=== PATIENT | male | born 1990 | race Caucasian/White ===

== ENCOUNTER 2016-12-08 11:20 | Emergency (ER) | payer MEDICAID ==
[2016-12-08 12:04] LABS: BASOPHILS 0.6 % (0.0-2.0); EOSINOPHILS 3.9 % (0.0-6.0); EOSINOPHILS# 0.2 X 10^3uL (0.0-0.4); HEMOGLOBIN 14.7 g/dL (14.0-18.0); LYMPHOCYTES 43.4 % (20.0-40.0); LYMPHOCYTES# 2.3 X 10^3uL (0.8-3.8); MEAN CELL VOLUME 96.4 fL (80.0-100.0); MEAN CORPUS. HGB CONCENTRATION 34.9 g/dL (32.0-36.0); MEAN CORPUSCULAR HEMOGLOBIN 33.7 pg (29.0-35.0); MEAN PLATELET VOLUME 8.9 fL (7.4-10.4); MONOCYTES 6.7 % (2.0-10.0); MONOCYTES# 0.4 X 10^3uL (0.2-1.0); NEUTROPHILS 45.4 % (54.0-75.0); NEUTROPHILS# 2.3 X 10^3uL (2.6-6.7); PLATELET COUNT 223 X 10^3uL (130-440); RED BLOOD COUNT 4.36 X 10^6uL (4.20-6.10); WHITE BLOOD COUNT 5.3 X 10^3uL (3.9-10.7)
[2016-12-08 12:12] LABS: BLOOD UREA NITROGEN 15 mg/dL (9-20); CHLORIDE 99 mmol/L (98-107); CREATININE 0.6 mg/dL (0.7-1.3); EST GLOMERULAR FILTRATION RATE > 60 mL/min; POTASSIUM 3.7 mmol/L (3.5-5.1); SODIUM 135 mmol/L (137-145)
[2016-12-08 12:28] LABS: GLUCOSE 211 mg/dL (70-100)
[2016-12-08 12:33] LABS: BETA HYDROXYBUTYRATE 0.19 mmol/L (<0.40)
--- NOTE | 2016-12-08 14:36 | ER PHYSICIAN DOCUMENTATION ---
Physician Documentation [facility] Name:Avi Rodriges Age:26 yrs Sex:Male :1990 Arrival Date:12/08/2016 Time:11:20 Bed3 Private MD:Dieudonne Forrest ED, Scott Disposition: 12/08/16 14:13 Discharged to Home/Self Care. Impression: Diabetes Mellitus, Type 1 with Hyperglycemia. - Condition is Good. - Discharge Instructions: DIABETIC HYPERGLYCEMIA. - Medical Reconciliation form form. - Follow up: [facility]; When: 1 - 2 days; Reason: Worsening of condition, Recheck today's complaints, Continuance of care. - Problem is an acute exacerbation. - Symptoms have improved. HPI: 12/08 13:18 This 26 yrs old Male presents to ER with complaints of High Blood Sugar. sc 13:59 The patient or guardian reports generalized fatigue, hyperglycemia, polydipsia, sc polyuria, that was potentially precipitated by no particular event. Onset: The symptom(s)/episode began/occurred 6 week(s) ago. Associated signs and symptoms: Pertinent positives: dry skin, ketones in urine, polydipsia. Current symptoms: In the emergency department the patient's symptoms are unchanged from the initial presentation. The patient has been recently seen at an urgent care, last week, last month, for similar complaints, newly diagnosed iddm with constant fingersticks measuring ' hi'. Historical: - Allergies: No known drug Allergies; - Home Meds: 1. insulin - PMHx: DIABETES - IDDM; - PSHx: None; - Tetanus: < 10 years. - Ebola Screening: : Patient denies exposure to infectious person. Patient denies travel to an Ebola-affected area in the 21 days before illness onset. . - Social history: Smoking status: Patient uses tobacco products, current every day smoker. Patient uses alcohol occasionally. Patient/guardian denies using marijuana. ROS: 14:00 Constitutional: Negative for fever, chills, and weight loss. sc 14:00 Eyes: Negative for injury, pain, redness, and discharge. sc ENT: Negative for injury, pain, and discharge. Neck: Negative for injury, pain, and swelling. Cardiovascular: Negative for chest pain, palpitations, and edema. Respiratory: Negative for shortness of breath, cough, wheezing, and pleuritic chest pain. Back: Negative for injury and pain. MS/Extremity: Negative for injury and deformity. 14:00 Skin: Negative for injury, rash, and discoloration. 14:00 Constitutional: Positive for fatigue, poor PO intake. 14:00 Abdomen/GI: Positive for nausea. 14:00 Neuro: Positive for weakness. Exam: Head/Face: Normocephalic, atraumatic. Eyes: Pupils equal round and reactive to light, extra-ocular motions intact. Lids and lashes normal. Conjunctiva and sclera are non-icteric and not injected. Cornea within normal limits. Periorbital areas with no swelling, redness, or edema. Neck: Trachea midline, no thyromegaly or masses palpated, and no cervical lymphadenopathy. Supple, full range of motion without nuchal rigidity, or vertebral point tenderness. No meningismus. Chest/axilla: Normal chest wall appearance and motion. Nontender with no deformity. No lesions are appreciated. Cardiovascular: Regular rate and rhythm with a normal S1 and S2. No gallops, murmurs, or rubs. Normal PMI, no JVD. No pulse deficits. Respiratory: Lungs have equal breath sounds bilaterally, clear to auscultation and percussion. No rales, rhonchi or wheezes noted. No increased work of breathing, no retractions or nasal flaring. Abdomen/GI: Soft, non-tender, with normal bowel sounds. No distension or tympany. No guarding or rebound. No evidence of tenderness throughout. Back: No spinal tenderness. No costovertebral tenderness. Full range of motion. MS/ Extremity: Pulses equal, no cyanosis. Neurovascular intact. Full, normal range of motion, negative Homans's, calves equal bilaterally. 14:01 Neuro: Awake and alert, GCS 15, oriented to person, place, time, and situation. ri Cranial nerves II-XII grossly intact. Motor strength 5/5 in all extremities. Sensory grossly intact. Cerebellar exam normal. Normal gait. 14:01 Constitutional: The patient appears alert, awake, lethargic. 14:01 ENT: Mouth: Oral mucosa: dry. 14:01 Skin: Turgor: is poor. 14:15 Abdomen/GI: Bowel sounds: normal, Palpation: abdomen is soft and non-tender. ri 14:15 Respiratory: Respirations: normal, Breath sounds: are normal, clear throughout. ri Vital Signs: 11:37 BP 122 / 78; Pulse 97; Pulse Ox 97% on R/A; st 12:28 BP 111 / 63; Pulse 87; Pulse Ox 97% ; st 12:30 BP 109 / 71; Pulse 85; Pulse Ox 95% ; st 13:00 BP 111 / 66; Pulse 77; Pulse Ox 96% ; st 13:30 BP 111 / 63; Pulse 78; Pulse Ox 100% ; st MDM: 11:25 Patient medically screened. ri 14:06 Differential diagnosis: DKA, hyperglycemia. Data reviewed: vital signs, nurses notes, ri old medical records, lab test result(s), and as a result, I will continue to observe the patient, administer IV fluids. Counseling: I had a detailed discussion with the patient and/or guardian regarding: the historical points, exam findings, and any diagnostic results supporting the discharge/admit diagnosis, the need for outpatient follow up, to return to the emergency department if symptoms worsen or persist or if there are any questions or concerns that arise at home. Medication response: The patient's symptoms have improved. 12/08 12:10 Order name: CBC AUTO DIF, MDIF/RMOR IF IND; Complete Time: 12:34 EDMI 12/08 12:34 Interpretation: Normal: Normal. ri 12/08 12:28 Order name: BASIC METABOLIC PANEL; Complete Time: 12:34 EDMS 12/08 12:34 Interpretation: Normal Except: SODIUM 135; GLUCOSE 211. ri 12/08 12:34 Order name: BETA HYDROXYBUTYRATE; Complete Time: 12:34 EDMI 12/08 12:34 Interpretation: Normal. ri 12/08 11:41 Order name: Urine Dip; Complete Time: 14:27 ri Dispensed Medications: 11:48 Drug: NS 0.9% 1000 ml; Route: IV; Rate: bolus; Site: left antecubital; st 12:21 Follow up: IV Status: Completed infusion; IV Intake: 1000ml st 12:30 Drug: NS 0.9% 1000 ml; Route: IV; Rate: 100 ml/hr; Site: left antecubital; st 14:26 Follow up: IV Status: Infusion discontinued; IV Intake: 200ml Point of Care Testing: Blood Glucose: 12:58 Blood Glucose: 200 mg/dL; Urine Dip: 13:50 pH: 6.0; ; Specific [place]: 1.025; Ketones: Negative; Glucose: Positive; Protein: sd3 Trace; Leukocytes: Negative; Nitrite: Negative ; Blood: Negative; Bilirubin: Negative ; Urobilinogen: Normal Ranges: Critical Glucose Levels:Adult <50 mg/dl or >400 mg/dl <40 mg/dl or >180 mg/dl Signatures: Blessing Huitron RN RN st Chew, Scott, MD MD ri
--- NOTE | 2016-12-08 14:36 | ER NURSING DOCUMENTATION ---
Nurse's Notes [facility] Name:Avi Rodriges Age:26 yrs Sex:Male :1990 Arrival Date:12/08/2016 Time:11:20 Bed3 Private MD:Dieudonne Forrest Diagnosis:Diabetes Mellitus, Type 1 with Hyperglycemia Presentation: 12/08 11:23 Presenting complaint: Patient states: pt states that he was dx with diabetes about a st month ago but his Glucometer keeps saying high and he dose not feel well. Transition of care: Home. 11:23 Method Of Arrival: Private Vehicle st 11:39 Acuity: MODESTO 2 st Triage Assessment: 11:23 General: Appears uncomfortable, Behavior is cooperative. General: pt also reports some" st neuropathy in his hands and feet when they get cold". Pain: Denies pain. EENT: Oral mucosa is dry. EENT: Reports blurred vision. Neuro: No deficits noted. Cardiovascular: tachy. Cardiovascular: Heart tones present Reports lightheadedness. Respiratory: No deficits noted. GI: No deficits noted. Historical: - Allergies: No known drug Allergies; - Home Meds: 1. insulin - PMHx: DIABETES - IDDM; - PSHx: None; - Tetanus: < 10 years. - Ebola Screening: : Patient denies exposure to infectious person. Patient denies travel to an Ebola-affected area in the 21 days before illness onset. . - Social history: Smoking status: Patient uses tobacco products, current every day smoker. Patient uses alcohol occasionally. Patient/guardian denies using marijuana. Screenin:23 Infectious Disease Risk None. Abuse screen: Denies threats or abuse. Denies injuries st from another. pt feels safe at home. Nutritional screening: No deficits noted. Assessment: 12:00 General: pt resting quietly. st Vital Signs: 11:37 BP 122 / 78; Pulse 97; Pulse Ox 97% on R/A; st 12:28 BP 111 / 63; Pulse 87; Pulse Ox 97% ; st 12:30 BP 109 / 71; Pulse 85; Pulse Ox 95% ; st 13:00 BP 111 / 66; Pulse 77; Pulse Ox 96% ; st 13:30 BP 111 / 63; Pulse 78; Pulse Ox 100% ; st ED Course: 11:23 Patient arrived in ED. ama 11:23 Valuables Remains with patient Patient has correct armband on for positive st identification. Placed in gown. Bed in low position. Call light in reach. Pulse Ox - RN Monitoring Only NIBP On - RN Monitoring Only. Warm blanket given. 11:24 Dieudonne Forrest MD is Private Physician. ama 11:24 Magdy Sadler MD is Attending Physician. tx 11:39 Blessing Huitron RN is Primary Nurse. st 11:[address] 11:48 Inserted peripheral IV: 20 gauge in left antecubital area and blood collected. st 13:50 Assisted to bathroom. pt able to walk without any troubles. st 13:51 Urine collected. Clean catch specimen. st 14:07 [place] is Referral Physician. sc Administered Medications: 11:48 Drug: NS 0.9% 1000 ml; Route: IV; Rate: bolus; Site: left antecubital; st 12:21 Follow up: IV Status: Completed infusion; IV Intake: 1000ml st 12:30 Drug: NS 0.9% 1000 ml; Route: IV; Rate: 100 ml/hr; Site: left antecubital; st 14:26 Follow up: IV Status: Infusion discontinued; IV Intake: 200ml Point of Care Testing: Blood Glucose: 12:58 Blood Glucose: 200 mg/dL; st Urine Dip: 13:50 pH: 6.0; ; Specific [place]: 1.025; Ketones: Negative; Glucose: Positive; Protein: sd3 Trace; Leukocytes: Negative; Nitrite: Negative ; Blood: Negative; Bilirubin: Negative ; Urobilinogen: Normal Ranges: Intake: 12:21 IV: 1000ml; Total: 1000ml. st 14:26 IV: 200ml; Total: 1200ml. st Outcome: 14:13 Discharge ordered by . tx 14:31 Discharged to home ambulatory. st 14:31 Condition: improved 14:31 Discharge instructions given to patient, Instructed on discharge instructions, follow up and referral plans. medication usage. 14:31 IV D/Frederic 14:35 Patient left the ED. st Signatures: Blessing Huitron RN RN st Magdy Sadler MD MD [facility], [facility] sd3 Eulogio Latif, Reg Reg ama
== END 2016-12-08 14:36 | disposition home or self-care (01) ==
LOC: ER 11:20
DX: E10.65 Type 1 diabetes mellitus with hyperglycemia (principal); E86.0 Dehydration; R53.83 Other fatigue; R53.1 Weakness; R11.0 Nausea
CPT/HCPCS: 80048; 82010; 85025; 96360; 96361; 99284

== ENCOUNTER 2017-01-23 03:16 | Emergency (ER) | payer SELFPAY ==
[2017-01-23] MEDS ORDERED: INSULIN REGULAR HUMAN 100 UNITS/ML ML ONE ×2 (03:41→04:49)
[2017-01-23 03:55] LABS: BASOPHILS 0.6 % (0.0-2.0); EOSINOPHILS 3.5 % (0.0-6.0); EOSINOPHILS# 0.2 X 10^3uL (0.0-0.4); HEMOGLOBIN 16.8 g/dL (14.0-18.0); LYMPHOCYTES 39.4 % (20.0-40.0); LYMPHOCYTES# 2.8 X 10^3uL (0.8-3.8); MEAN CELL VOLUME 96.6 fL (80.0-100.0); MEAN CORPUS. HGB CONCENTRATION 35.1 g/dL (32.0-36.0); MEAN CORPUSCULAR HEMOGLOBIN 33.9 pg (29.0-35.0); MEAN PLATELET VOLUME 8.9 fL (7.4-10.4); MONOCYTES 7.4 % (2.0-10.0); MONOCYTES# 0.5 X 10^3uL (0.2-1.0); NEUTROPHILS 49.1 % (54.0-75.0); NEUTROPHILS# 3.5 X 10^3uL (2.6-6.7); PLATELET COUNT 208 X 10^3uL (130-440); RED BLOOD COUNT 4.97 X 10^6uL (4.20-6.10); RED CELL DISTRIBUTION WIDTH 11.4 % (11.5-14.5)
[2017-01-23 03:57] LABS: BLOOD UREA NITROGEN 17 mg/dL (9-20); CALCIUM 9.5 mg/dL (8.4-10.2); CHLORIDE 101 mmol/L (98-107); CREATININE 0.6 mg/dL (0.7-1.3); EST GLOMERULAR FILTRATION RATE > 60 mL/min; POTASSIUM 4.3 mmol/L (3.5-5.1); SODIUM 139 mmol/L (137-145)
[2017-01-23 04:01] LABS: GLUCOSE 457 mg/dL (70-100)
[2017-01-23 04:02] LABS: ETHYL ALCOHOL 146 mg/dL (<10)
[2017-01-23 04:03] LABS: BETA HYDROXYBUTYRATE 0.46 mmol/L (<0.40)
[2017-01-23] MEDS ORDERED: THIAMINE HCL 200 MG/2 ML VIAL ONE (04:04)
[2017-01-23] MEDS ORDERED: MAGNESIUM SULFATE 1 GM/2 ML VIAL ONE (04:04)
[2017-01-23] MEDS ORDERED: MULTIVITAMINS 10 ML VIAL IV ONE (04:05)
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
--- NOTE | 2017-01-23 05:18 | ER PHYSICIAN DOCUMENTATION ---
[facility]ician Documentation [facility] Name:Avi Rodriges Age:26 yrs Sex:Male :1990 Arrival Date:01/23/2017 Time:03:16 Bed4 Private MD:Dieudonne Forrest ED, Scott Disposition: 01/23/17 04:41 Discharged to Home/Self Care. Impression: Diabetes Mellitus, Type 1 with Hyperglycemia, Alcohol Abuse. - Condition is Good. - Discharge Instructions: DIABETIC HYPERGLYCEMIA, Abuse, Alcohol - ALCOHOL INTOXICATION. - Medical Reconciliation form form. - Follow up: Dieudonne Forrest MD; When: 1 week; Reason: Recheck today's complaints. - Problem is new. - Symptoms have improved. HPI: 01/23 03:58 This 26 yrs old Male presents to ER via Police with complaints of High Blood sc Sugar, ETOH Abuse. 03:58 The patient or guardian reports hyperglycemia, that was potentially precipitated by no sc particular event. Onset: The symptom(s)/episode began/occurred at an unknown time. Associated signs and symptoms: Pertinent positives: None. The patient has experienced similar episodes in the past, chronically. Takes lantus 20 per day but doesn't check blood sugars or have local Dr., drinks EtOH most days but no wd symptoms in past. Historical: - Allergies: No known drug Allergies; - Home Meds: 1. insulin - PMHx: DIABETES - IDDM; Diabetes Mellitus, Type 1 with Hyperglycemia (December 08, 2016); - PSHx: NONE; - Tetanus: < 10 years. - Ebola Screening: : Patient negative for fever greater than or equal to 101.5 degrees Fahrenheit, and additional compatible Ebola Virus Disease symptoms. - Immunization history: Flu Vaccine None. - Social history: Smoking status: Patient uses tobacco products, current every day smoker. Patient uses alcohol claims drinking about a 6 pack/day. patient/guardian reports chronic longstanding heavy alcohol consumption. patient/guardian reports recent binge of alcohol consumption. ROS: 03:59 Constitutional: Negative for fever, chills, and weight loss. sc Eyes: Negative for injury, pain, redness, and discharge. ENT: Negative for injury, pain, and discharge. Neck: Negative for injury, pain, and swelling. Cardiovascular: Negative for chest pain, palpitations, and edema. Respiratory: Negative for shortness of breath, cough, wheezing, and pleuritic chest pain. Abdomen/GI: Negative for abdominal pain, nausea, vomiting, diarrhea, and constipation. Back: Negative for injury and pain. MS/Extremity: Negative for injury and deformity. Skin: Negative for injury, rash, and discoloration. 03:59 Neuro: Negative for headache, weakness, numbness, tingling, and seizure. sc Exam: Constitutional: This is a well developed, well nourished patient who is awake, alert, and in no acute distress. Head/Face: Normocephalic, atraumatic. Eyes: Pupils equal round and reactive to light, extra-ocular motions intact. Lids and lashes normal. Conjunctiva and sclera are non-icteric and not injected. Cornea within normal limits. Periorbital areas with no swelling, redness, or edema. ENT: Nares patent. No nasal discharge, no septal abnormalities noted. Tympanic membranes are normal and external auditory canals are clear. Oropharynx with no redness, swelling, or masses, exudates, or evidence of obstruction, uvula midline. Mucous membranes moist. Cardiovascular: Regular rate and rhythm with a normal S1 and S2. No gallops, murmurs, or rubs. Normal PMI, no JVD. No pulse deficits. Respiratory: Lungs have equal breath sounds bilaterally, clear to auscultation and percussion. No rales, rhonchi or wheezes noted. No increased work of breathing, no retractions or nasal flaring. Abdomen/GI: Soft, non-tender, with normal bowel sounds. No distension or tympany. No guarding or rebound. No evidence of tenderness throughout. Back: No spinal tenderness. No costovertebral tenderness. Full range of motion. Skin: Warm, dry with normal turgor. Normal color with no rashes, no lesions, and no evidence of cellulitis. MS/ Extremity: Pulses equal, no cyanosis. Neurovascular intact. Full, normal range of motion, negative Homans's, calves equal bilaterally. 04:39 Neuro: Awake and alert, GCS 15, oriented to person, place, time, and situation. sc Cranial nerves II-XII grossly intact. Motor strength 5/5 in all extremities. Sensory grossly intact. Cerebellar exam normal. Normal gait. 04:43 Abdomen/GI: Bowel sounds: normal, Palpation: abdomen is soft and non-tender. ky 04:43 Respiratory: Respirations: normal, Breath sounds: are normal, clear throughout. ky 04:43 Neck: Exam negative for acute changes. ky Vital Signs: 03:24 BP 133 / 92; Pulse 84; Resp 15; Temp 98.3(TE); Pulse Ox 92% on R/A; Weight 70.31 kg; rh Height 6 ft. 0 in. (182.88 cm); Pain 4/10; 05:10 BP 122 / 76; Pulse 86; Resp 15; Pulse Ox 97% on R/A; Pain 0/10; rh 03:24 Body Mass Index 21.02 (70.31 kg, 182.88 cm) rh MDM: 03:47 Patient medically screened. ky 04:40 Differential diagnosis: hyperglycemia. Data reviewed: vital signs, nurses notes, lab sc test result(s), and as a result, I will continue to observe the patient, administer IV fluids. Counseling: I had a detailed discussion with the patient and/or guardian regarding: the historical points, exam findings, and any diagnostic results supporting the discharge/admit diagnosis, lab results, the need for outpatient follow up, to return to the emergency department if symptoms worsen or persist or if there are any questions or concerns that arise at home. 01/23 04:04 Order name: BASIC METABOLIC PANEL; Complete Time: 04:43 EDMS 01/23 04:42 Interpretation: Abnormal: CARBON DIOXIDE 21; GLUCOSE 457. ky 01/23 04:04 Order name: ETHYL ALCOHOL; Complete Time: 04:43 EDMS 01/23 04:42 Interpretation: Abnormal: ETHYL ALCOHOL 146. ky 01/23 04:04 Order name: BETA HYDROXYBUTYRATE; Complete Time: 04:43 EDMS 01/23 04:43 Interpretation: Normal Except: BETA HYDROXYBUTYRATE 0.46. ky 01/23 04:05 Order name: CBC AUTO DIF, MDIF/RMOR IF IND; Complete Time: 04:43 EDMS 01/23 04:43 Interpretation: Normal. ky 01/23 03:26 Order name: Iv Saline Lock; Complete Time: 03:37 rh 01/23 03:46 Order name: Accucheck; Complete Time: 03:46 rh Dispensed Medications: 03:34 Drug: Insulin Regular Human 12 units; Route: Sub-Q; Site: right upper abdomen; rh 03:58 Follow up: Response: No adverse reaction rh 03:37 Drug: NS 0.9% 1000 ml; Route: IV; Rate: bolus; Site: left antecubital; rh 05:00 Follow up: IV Status: Completed infusion; IV Intake: 1000ml rh 03:58 Drug: Banana Bag - (NS 0.9% 1000 ml, folic acid 600 mcg, Thiamine 100 mg, Multivitamin rh 10 ml, Magnesium Sulfate 1 grams); Route: IV; Rate: calculated rate; Site: left antecubital; 05:00 Follow up: IV Status: Completed infusion; IV Intake: 1000ml rh 04:38 Drug: Insulin Regular Human 5 units; Route: Sub-Q; Site: left lower abdomen; rh 05:18 Follow up: Response: No adverse reaction rh Point of Care Testing: Blood Glucose: 03:31 Blood Glucose: 387 mg/dL; em1 04:33 Blood Glucose: 311 mg/dL; rh Ranges: Critical Glucose Levels:Adult <50 mg/dl or >400 mg/dl <40 mg/dl or >180 mg/dl Signatures: Magdy Sadler MD MD sc Hofsess, Rachel
== END 2017-01-23 05:18 | disposition home or self-care (01) ==
LOC: ER 03:16 → EEVIPCON 03:16 → ER 05:18
DX: E10.65 Type 1 diabetes mellitus with hyperglycemia (principal); F10.129 Alcohol abuse with intoxication, unspecified; F17.210 Nicotine dependence, cigarettes, uncomplicated
CPT/HCPCS: 80048; 80320; 82010; 85025; 96365; 96372; 99284; J1815; J3475